=== PATIENT | female | born 1980 | race Hispanic/Latino ===

== ENCOUNTER → 2024-05-02 | Day surgery (SDC) | payer OTHER ==
[2024-05-02] MEDS: LACTATED RINGER'S 1,000 ML ONE (09:15)
[2024-05-02 11:10] VITALS: TEMP 97.2
[2024-05-02 11:25] VITALS: BP 123/81; PULSE 63; RESP 16; O2SAT 100
== END | disposition home or self-care (01) ==
LOC: OR 08:11
PROVIDERS: ATTEND Internal Medicine Gastroenterology
DX: D50.9 Iron deficiency anemia, unspecified (principal); K29.50 Unspecified chronic gastritis without bleeding; K31.A15 Gastric intestinal metaplasia without dysplasia, involving multiple sites; K31.89 Other diseases of stomach and duodenum; K21.9 Gastro-esophageal reflux disease without esophagitis; K44.9 Diaphragmatic hernia without obstruction or gangrene; R19.7 Diarrhea, unspecified; E66.01 Morbid (severe) obesity due to excess calories
CPT/HCPCS: 43239; 45380; 81025; 88305; J7121